=== PATIENT | male | born 1965 | race Caucasian/White ===

== ENCOUNTER 2016-12-08 10:34 | Observation (INO) | payer MEDICAID, OTHER ==
[~2016-12-08] VITALS: Ht 180.3 cm; Wt 100.2 kg
[~2016-12-08 10:34] MED LIST: HYDR-762 PO
[2016-12-08] MEDS ORDERED: ONDANSETRON 4 MG INJ IV STA (10:55)
[2016-12-08] MEDS ORDERED: NITROGLYCERIN 2% 1 GM OINT PKT TD STA (10:55)
[2016-12-08] MEDS ORDERED: morphine 4 MG/ML VIAL IV STA (10:55)
[2016-12-08] MEDS ORDERED: ASPIRIN 325 MG TAB PO STA (10:55)
[2016-12-08] MEDS: NITROGLYCERIN (SL) 0.4 MG TAB SL PRN ×3 (11:00→11:13)
[2016-12-08 11:11] LABS: ADD SCAN DIFF NO
[2016-12-08] MEDS ORDERED: INSU200I SQ (11:13)
[2016-12-08] MEDS ORDERED: LANT3I SC (11:14)
[2016-12-08] MEDS ORDERED: ATOR40TA68 PO (11:14)
[2016-12-08] MEDS ORDERED: METF1000 PO (11:14)
[2016-12-08] MEDS ORDERED: ALPR1TAB2 PO (11:16)
[2016-12-08] MEDS ORDERED: ATEN-122 PO (11:16)
[2016-12-08] MEDS ORDERED: LOSA100T47 PO (11:19)
[2016-12-08] MEDS ORDERED: LISI40TA9 PO (11:20)
[2016-12-08 11:21] LABS: BASOPHILS % 0.3 % (0.0-2.0); EOSINOPHILS # 0.2 10^3/ul (0.0-0.5); HEMATOCRIT 47.3 % (42.0-52.0); HEMOGLOBIN 15.9 g/dl (14.0-18.0); LYMPHOCYTES # 1.6 10^3/ul (0.8-2.9); LYMPHOCYTES % 23.9 % (15.0-51.0); MEAN CORPUSCULAR HEMOGLOBIN 29.3 pg (29.0-33.0); MEAN CORPUSCULAR HGB CONC 33.6 g/dl (32.0-37.0); MEAN CORPUSCULAR VOLUME 87.1 fl (82.0-101.0); MEAN PLATELET VOLUME 11.5 fl (7.4-10.4); MONOCYTE # 0.6 10^3/ul (0.3-0.9); MONOCYTES % 8.3 % (0.0-11.0); NEUTROPHIL # 4.4 10^3/ul (1.6-7.5); NEUTROPHILS % 64.2 % (39.0-77.0); PLATELET COUNT 234 10^3/UL (140-415); RED BLOOD COUNT 5.43 10^6/ul (4.70-6.10); RED CELL DISTRIBUTION WIDTH 12.2 % (11.5-14.5); WHITE BLOOD COUNT 6.8 10^3/ul (4.8-10.8)
[2016-12-08] MEDS ORDERED: HYDR-902 PO (11:21)
[2016-12-08 11:52] LABS: ALANINE AMINOTRANSFERASE 36 IU/L (13-69); ALBUMIN 4.6 g/dl (3.3-4.9); ALBUMIN/GLOBULIN RATIO 1.27; ALKALINE PHOSPHATASE 83 IU/L (42-121); ANION GAP 24 (8-16); ASPARTATE AMINO TRANSFERASE 36 IU/L (15-46); BILIRUBIN,INDIRECT 0.4 mg/dl (0-1.1); BILIRUBIN,TOTAL 0.4 mg/dl (0.2-1.3); BLOOD UREA NITROGEN 14 mg/dl (7-20); CALCIUM 9.8 mg/dl (8.4-10.2); CARBON DIOXIDE 22 mmol/L (21-31); CHLORIDE 97 mmol/L (97-110); CREATININE 0.69 mg/dl (0.61-1.24); GLUCOSE 372 mg/dl (70-220); POTASSIUM 4.2 mmol/L (3.5-5.1); SODIUM 139 mmol/L (135-144); TOTAL PROTEIN 8.2 g/dl (6.1-8.1)
[2016-12-08 11:56] LABS: INR 0.96; PARTIAL THROMBOPLASTIN TIME 27.9 Sec (25.0-35.0); PROTIME 12.8 Sec (12.2-14.2)
[2016-12-08 12:09] LABS: TROPONIN-I < 0.012 ng/ml (0.00-0.12)
--- NOTE | 2016-12-08 12:13 | RADRPT ---
PROCEDURE: Chest x-ray CLINICAL INDICATION: Chest pain TECHNIQUE: Chest single view COMPARISON: None FINDINGS: The heart is normal in size. The pulmonary vessels are normal in caliber. The lungs are clear. Th e costophrenic angles are sharp. The visualized bony thorax is unremarkable. Suspect lower cervical spine hardware which is partially visualized IMPRESSION: No acute cardiopulmonary disease. RPTAT: HH .Jose Ramon Lorenzana MD, MD Date Time Electronically viewed and signed by .Jose Ramon Lorenzana MD, on 12/08/2016 12:13 .W/
[2016-12-08 12:30] VITALS: TEMP 98
--- NOTE | 2016-12-08 13:42 | ERA ---
ER Documentation Chief Complaint Date/Time DATE: 12/08/16 TIME: 13:39 Chief Complaint CHEST PAIN WHILE WORKING NO DIAPHORESIS. MILD SOB. LEFT ARM RADIATING PAIN HPI This a 51-year-old male who is here for chest pain. The patient states for the past week he has been having some substernal chest pressure that radiates to the left arm with some shortness of breath. No diaphoresis palpitations syncope pain. The patient says he has hypertension, diabetes, high cholesterol. Patient does not smoke. 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 He is complaining of some mild low back pain as well. No loss of consciousness or head injury denies any neck pain or extremity pain known focal neurological complaints. His current chest pain is mild he describes as a pressure ROS All systems reviewed and are negative except as per history of present illness. Medications Home Meds Reported Medications Hydrocodone/Acetaminophen ([place] 10-325 Tablet) 1 Each Tablet, 1 EACH PO TID, TAB 12/08/16 Lisinopril* (Lisinopril*) 40 Mg Tablet, 40 MG PO DAILY, #30 TAB 12/08/16 Losartan Potassium* (Cozaar*) 100 Mg Tablet, 100 MG PO DAILY, #30 TAB 12/08/16 Atenolol* (Tenormin*) 50 Mg Tablet, 50 MG PO DAILY, #30 TAB 12/08/16 Alprazolam* (Xanax*) 1 Mg Tab, 1 MG PO QHS Y for SLEEP, TAB 12/08/16 Atorvastatin* (Atorvastatin*) 40 Mg Tablet, 40 MG PO QHS, #30 TAB 12/08/16 Metformin Hcl* (Metformin Hcl*) 1,000 Mg Tablet, 1000 MG PO WITH BREAKFAST DINNE , #30 TAB 12/08/16 Insulin Glargine* (Lantus*) 100 Unit/Ml Soln, 15 UNIT SC QHS, #1 VIAL 12/08/16 Insulin Lispro (Humalog Kwikpen) 200 Unit/1 Ml Insuln.pen, 15 UNIT SQ AC MEALS, EA 12/08/16 Discontinued Scripts Hydrocodone Bit-Acetaminophen* ([place]*) 10-325 Mg Tablet, 1 TAB PO Q6 Y for PAIN , #18 TAB Prov:MADDISON ENCISO MD 12/17/15 Allergies Allergies: Coded Allergies: No Known Allergy (Unverified , 12/08/16) PMhx/Soc History of Surgery: Yes (NECK AND BACK SURGERY) Hx Psychiatric Problems: No Hx Miscellaneous Medical Probl: No Hx Alcohol Use: Yes Hx Substance Use: No Hx Tobacco Use: No Smoking Status: Former smoker FmHx Family History: No coronary disease Physical Exam Vitals Vital Signs Date Time Temp Pulse Resp B/P Pulse Ox O2 Delivery O2 Flow Rate FiO2 12/08/16 11:15 104 20 161/90 98 Room Air 12/08/16 11:05 97 21 161/97 98 Room Air 12/08/16 11:00 101 21 187/91 98 Room Air 12/08/16 10:36 98.6 101 21 195/105 98 Physical Exam Const: Well-developed, well-nourished Head: Atraumatic, normocephalic Eyes: Normal Conjunctiva, PERRLA, EOMI, normal sclera, no nystagmus ENT: Normal External Ears, Nose and Mouth, moist mucus membranes. Neck: Full range of motion. No meningismus, no lymphadenopathy. Resp: Clear to auscultation bilaterally, no wheezing, rhonchi, rales Cardio: Regular rate and rhythm, no murmurs, S1 S2 present Abd: Soft, non tender x 4, non distended. Normal bowel sounds, no guarding or rebound, no pulsitile abdominal masses or bruits Skin: No petechiae or rashes, no ecchymosis , no maculopapular rash Back: No midline or flank tenderness, bilateral lower paraspinal lumbar tenderness negative straight leg test by the Ext: No cyanosis, or edema, FROM x 4, normal inspection, neurovascularly intact x 4 Neur: Awake and alert, STR 5/5 x 4, sensation intact x 4, no focal findings, cerebellum intact Psych: Normal Mood and Affect Result Diagram: 12/08/16 1055 12/08/16 1055 Results 24 hrs Laboratory Tests Test 12/08/16 10:55 White Blood Count 6.810^3/ul Red Blood Count 5.4310^6/ul Hemoglobin 15.9g/dl Hematocrit 47.3% Mean Corpuscular Volume 87.1fl Mean Corpuscular Hemoglobin 29.3pg Mean Corpuscular Hemoglobin Concent 33.6g/dl Red Cell Distribution Width 12.2% Platelet Count 04722^3/UL Mean Platelet Volume 11.5fl Neutrophils % 64.2% Lymphocytes % 23.9% Monocytes % 8.3% Eosinophils % 3.0% Basophils % 0.3% Nucleated Red Blood Cells % 0.0/100WBC Neutrophils # 4.410^3/ul Lymphocytes # 1.610^3/ul Monocytes # 0.610^3/ul Eosinophils # 0.210^3/ul Basophils # 0.010^3/ul Nucleated Red Blood Cells # 0.010^3/ul Prothrombin Time 12.8Sec Prothrombin Time Ratio 1.0 INR International Normalized Ratio 0.96 Activated Partial Thromboplast Time 27.9Sec Sodium Level 139mmol/L Potassium Level 4.2mmol/L Chloride Level 97mmol/L Carbon Dioxide Level 22mmol/L Anion Gap 24 Blood Urea Nitrogen 14mg/dl Creatinine 0.69mg/dl Glucose Level 372mg/dl Calcium Level 9.8mg/dl Total Bilirubin 0.4mg/dl Direct Bilirubin 0.00mg/dl Indirect Bilirubin 0.4mg/dl Aspartate Amino Transf (AST/SGOT) 36IU/L Alanine Aminotransferase (ALT/SGPT) 36IU/L Alkaline Phosphatase 83IU/L Troponin I < 0.012ng/ml Total Protein 8.2g/dl Albumin 4.6g/dl Globulin 3.60g/dl Albumin/Globulin Ratio 1.27 Current Medications Medications (Trade) Dose Ordered Sig/Travon Route PRN Reason Start Time Stop Time Status Last Admin Dose Admin Aspirin (Aspirin) 325 mg ONCE STAT PO 12/08/16 10:55 12/08/16 10:57 DC 12/08/16 11:01 Nitroglycerin (Nitroglycerin 2% Oint) 1 inch ONCE STAT TD 12/08/16 10:55 12/08/16 10:57 DC 12/08/16 11:02 Nitroglycerin (Nitroglycerin (Sl Tab) 0.4 Mg) 1 tab Q5M UP TO 3 DOSES PRN SL CHEST PAIN 12/08/16 11:00 12/08/16 11:13 Morphine Sulfate (morphine) 4 mg ONCE STAT IV 12/08/16 10:55 12/08/16 10:57 DC 12/08/16 11:01 Ondansetron HCl (Zofran Inj) 4 mg ONCE STAT IV 12/08/16 10:55 12/08/16 10:57 DC 12/08/16 11:01 Procedures/MDM EKG: Rate/Rhythm: Sinus tachycardia at 105 heart rate QRS, ST, QT: NORMAL NV, QRS, QT] Impression: Sinus tachycardia PROCEDURE: Chest x-ray CLINICAL INDICATION: Chest pain TECHNIQUE: Chest single view COMPARISON: None FINDINGS: The heart is normal in size. The pulmonary vessels are normal in caliber. The lungs are clear. The costophrenic angles are sharp. The visualized bony thorax is unremarkable. Suspect lower cervical spine hardware which is partially visualized IMPRESSION: No acute cardiopulmonary disease. RPTAT: HH .Jose Ramon Loernzana MD, MD Date Time Electronically viewed and signed by .Jose Ramon Lorenzana MD, MD on 12/08/2016 12:13 .W/ CC: ADRY SUAREZ DO Patient is unstable for transfer due to unstable chest pain pattern Patient's symptoms are concerning for cardiac cause will require inpatient workup and continuous monitoring. Further w/u for ischemia, arrhythmia, PE or dissection will be deferred to the inpatient team. Accepting Care Team: Current data and ongoing care discussed. Time: Time of admission Primary Provider: [facility] Consulting: [[employer]] Outstanding Data: none Departure Diagnosis: Primary Impression: Chest pain Qualified Code: R07.9 - Chest pain, unspecified type Condition: Stable ADRY SUAREZ DO Dec 08, 2016 13:42
[2016-12-08] MEDS ORDERED: ACETAMINOPHEN 325 MG TAB PO PRN ×2 (14:00→15:00)
[2016-12-08] MEDS ORDERED: ONDANSETRON 4 MG INJ IV PRN ×2 (14:00→15:00)
--- NOTE | 2016-12-08 14:23 | RADRPT ---
PROCEDURE: XR Lumbar Spine. CLINICAL INDICATION: Trauma, back pain TECHNIQUE: AP, cone-down lateral, and lateral views of the lumbar spine were obtained. COMPARISON: None. FINDINGS: No fracture is identified. The vertebral bodies are maintained in height. There is preservation of the lordosis of the lumbar spine. There is mild retrolisthesis of L4 on L5 measuring 3-4 mm. Ther e is mild levoconvex lumbar scoliosis. There are multilevel anterior osteophytes, more pronounced a t L3-4. There is disk space narrowing, moderate at L3-4, moderate - severe at L4-5 and L5-S1. Poste rior osteophytes are seen at multiple levels. Facet arthropathy is seen at the L3-4 through L5-S1 l evels. IMPRESSION: No fracture identified. Lumbar spondylosis/degenerative enthesopathy, more pronounced at L4-5 and L5-S1, with mild retrolist hesis at L4-5. Mild levoconvex lumbar scoliosis. RPTAT: VV .Bhaskar Leonard MD, MD Date Time Electronically viewed and signed by .Bhaskar Leonard MD, on 12/08/2016 14:22 .O/
[2016-12-08] MEDS ORDERED: DOCUSATE SODIUM 100 MG CAP PO PRN (15:00)
[2016-12-08] MEDS ORDERED: ALPRAZOLAM 1 MG TAB PO PRN (15:00)
[2016-12-08] MEDS ORDERED: MAGNESIUM HYDROXIDE 30ML CUP PO PRN (15:00)
[2016-12-08] MEDS ORDERED: NITROGLYCERIN (SL) 0.4 MG TAB SL PRN (15:00)
[2016-12-08] MEDS ORDERED: NACL 0.9% 3 ML SYG IV SCH (15:00)
[2016-12-08] MEDS ORDERED: ACETAMINOPHEN 650 MG SUPP PR PRN (15:00)
[2016-12-08] MEDS ORDERED: GLUCOSE GEL 15 GRAM TUBE BUCCAL PRN (15:30)
[2016-12-08] MEDS ORDERED: GLUCOSE GEL 15 GRAM TUBE PO PRN ×2 (15:30)
[2016-12-08] MEDS ORDERED: GLUCAGON 1 MG INJ IM PRN (15:30)
[2016-12-08] MEDS ORDERED: DEXTROSE 50% 50 ML SYRINGE IV PRN ×2 (15:30)
--- NOTE | 2016-12-08 15:37 | HP ---
Date/Time of Note Date/Time of Note DATE: 12/08/16 TIME: 15:30 Assessment/Plan VTE Prophylaxis VTE Prophylaxis Intervention: LMWH Lines/Catheters IV Catheter Type (from Nrsg): Saline Lock Assessment/Plan Assessment/Plan This is a 51-year-old male who came to the emergency room for evaluation of chest pain. 1. Chest pain, rule out ACS versus musculoskeletal versus anxiety. -Admit to telemetry for observation. -Cardiology consult based on comorbidities -Start aspirin, nitroglycerin sublingual PRN and morphine. -Serial troponin, 2D echocardiogram, serial EKGs. -Obtain TSH, vitamin D level 2. Type 2 diabetes. -Obtain A1c -Start Accu-Cheks and insulin sliding scale -Resume Lantus and pre-meal insulin -Hold metformin -Carb controlled diet 3. Essential hypertension -Continue home medication except losartan as patient is also taking lisinopril. -Follow-up with cardiology recommendation 4. Anxiety -Resume home medications 5. Dyslipidemia -Resume home statin -Obtain lipid panel DVT prophylaxis: Lovenox PUD prophylaxis: Pepcid. Plan: Patient will be admitted to telemetry for observation. Patient will have cardiology consult. He will be placed on a carbohydrate controlled, cardiac diet. We will follow-up with a.m. lab studies and echo findings. The rest of the management depend on clinical course, further studies and input from customer sales consultant. Approximately 60 minutes was spent on this history and physical. Case discussed with Dr. Dickson. 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 Patient also reported that he fell into a hole while this happened. After the incident, patient has been having on and off chest pain regardless of activities. He also had lower back pain after the incident. Patient also reported that he has been under tremendous stress with his 16-year-old daughter who recently caught by director of employee development for shoplifting. He also reported that his blood pressure has been high recently and his PCP added Losartan to his medication while patient also takes Lisinopril. Patient denied any fever, nausea, vomiting , shortness of breath, chills, diarrhea, constipation, headache, loss of consciousness, abdominal pain, upper or lower GI bleed episodes, numbness or other constitutional symptoms. In the emergency room, patient was given pain medication and aspirin with improvement in his symptoms. Initial labs within acceptable range. Initial troponin also negative. Chest x-ray negative for any acute cardiopulmonary process. A lumbar CT also was negative for any acute process. EKG with sinus tachycardia. There was no ST or T-wave changes. A clinical decision was made to admit patient for further evaluation. ROS A 12 point review of system was assessed and is negative other than what is mentioned in the HPI. PMH/Family/Social Past Medical History See HPI Past Surgical History See HPI Social History Patient reports occasional alcohol use. Quit smoking. Smoking Status: Former smoker Exam/Review of Systems Vital Signs Vitals Vital Signs Date Time Temp Pulse Resp B/P Pulse Ox O2 Delivery O2 Flow Rate FiO2 12/08/16 14:42 90 19 159/63 98 Room Air 12/08/16 10:36 98.6 Exam Exam General: Well developed,adequately built, not in any acute distress . HEENT: Normocephalic, Atraumatic, No laceration or hematoma; Eyes: PEERL, Conjunctiva clear, Anicteric sclera Neck: Supple without any lymphadenopathy, nontender, no JVD, no carotid bruits, trachea midline, no thyromegaly Cardiac: S1, S2 auscultated, regular rhythm and rate, no mumurs or gallop Pulmonary: Normal respiratory effort. Chest clear to auscultation bilaterally, no adventitious breath sounds GI: Abdomen normal to inspection. Soft, non tender, non- distended, no masses, no rebound tenderness or guarding. Bowel sounds active on all four quadrants Genitourinary: Deferred Extremities: No cyanosis, clubbing, or edema. Pulses [2+] bilaterally. Full ROM on all four extremities. No focal weakness appreciated. Neurologic: Alert to person, place, time, and situation. Affect appropriate, intact sensation. Skin: Clean,dry, and intact. No ecchymosis, no rashes, or lesions Labs Result Diagram: 12/08/16 1055 12/08/16 1055 LESTER CRANDALL NP Dec 08, 2016 15:37
[2016-12-08 15:47] LABS: ADD UMIC NO; UR ASCORBIC ACID NEGATIVE (NEGATIVE); UR BILIRUBIN (Dip) NEGATIVE (NEGATIVE); UR BLOOD (Dip) NEGATIVE (NEGATIVE); UR CLARITY CLEAR (CLEAR); UR COLOR STRAW (YELLOW); UR GLUCOSE (Dip) 3+ mg/dL (NEGATIVE); UR KETONES (Dip) NEGATIVE (NEGATIVE); UR LEUKOCYTE ESTERASE (Dip) NEGATIVE Leu/ul (NEGATIVE); UR NITRITE (Dip) NEGATIVE (NEGATIVE); UR SPECIFIC GRAVITY (Dip) 1.026 (1.003-1.030); UR TOTAL PROTEIN (Dip) NEGATIVE (NEGATIVE); UR UROBILINOGEN (Dip) NEGATIVE (NEGATIVE)
[2016-12-08 15:50] LABS: CREATINE KINASE 45 IU/L (23-200)
[2016-12-08] MEDS: morphine 2 MG INJ IV PRN ×2 (16:20→22:08)
[2016-12-08 16:21] LABS: CK-MB 0.75 ng/ml (0.0-2.4); TROPONIN-I < 0.012 ng/ml (0.00-0.12)
[2016-12-08] MEDS ORDERED: INSULIN ASPART [NOVOLOG] 3 ML PEN SC SCH (17:00)
[2016-12-08 17:31] VITALS: Ht 180.3 cm; Wt 100.2 kg
--- NOTE | 2016-12-08 17:31 | RADRPT ---
Echocardiogram Report Patient Name: AMAN HERCULES Gender: Male Date: 1965 Study Date: 08-Dec-2016 Geographic Information Scientist: Frankie Whyte RDCS Location: Er 6 Ref. Physician: LESTER CRANDALL Quality: Good Procedures: Transthoracic echocardiogram with complete 2D, M-Mode, and doppler examination. Indications: Chest Pain. 2D/M Mode Doppler Measurement Value Normal Ranges Measurement Value Normal Ranges IVSd MM 2.1 cm LVOT Mean Sergio 0.6 m/sec LVIDd 2D 4.2 3.5 - 5.6 cm LVOT Mean PG 1.8 mmHg LVIDs 2D 1.6 2.1 - 4.1 cm LVOT Peak Sergio 0.8 m/sec LVPWd 2D 1.4 0.6 - 1.1 cm LVOT Peak PG 2.9 mmHg IVSd 2D 1.4 0.6 - 1.1 cm LVOT VTI 16.5 cm EDV 2D 79.4 cm3 MV E Peak Sergio 0.6 m/sec ESV 2D 4.0 cm3 MV A Peak Sergio 0.8 m/sec LA Dimen 2D 3.9 2.3 - 4.0 cm MV E/A 0.8 LVOT Diam 2.4 cm MV Decel Time 253 msec MV Decel Comanche 2 MV E/A 0.8 TR Peak Sergio 2.3 m/sec TR Peak PG 21.3 mmHg RVSP 31.3 mmHg Findings Left Ventricle: Normal left ventricular systolic function. Moderate concentric left ventricular hypertrophy. Ejection fraction is visually estimated at 55 %. Abnormal Diastolic Function. Right Ventricle: Normal right ventricular size. Normal right ventricular systolic function. Left Atrium: The left atrium is normal in size. Right Atrium: The right atrium is normal in size. Mitral Valve: Mitral valve leaflets appear mildly thickened. Mild mitral annular calcification. Trace mitral regurgitation. Aortic Valve: No aortic regurgitation. Tricuspid Valve: Estimated peak PA systolic pressure 31 mmHg. There is trace tricuspid regurgitation. Pulmonic Valve: Pulmonic valve not well visualized. Pericardium: Normal pericardium with no significant pericardial effusion. Aorta: Normal aortic root. IVC: Normal size and normal respiratory collapse consistent with normal right atrial pressure. Pulmonary Artery: Not well visualized. Conclusions 1.Normal left ventricular systolic function. Moderate concentric left ventricular hypertrophy. Ejection fraction is visually estimated at 55 %. Abnormal Diastolic Function. 2.No aortic regurgitation. 3.Estimated peak PA systolic pressure 31 mmHg. There is trace tricuspid regurgitation. 4.Mitral valve leaflets appear mildly thickened. Mild mitral annular calcification. Trace mitral regurgitation. Electronically Signed By: Darryl Bucio 08-Dec-2016 17:30:52 -0700 Patient Name: AMAN HERCULES Study Date: 08-Dec-2016 [id number]
[2016-12-08 17:55] VITALS: BP 148/79; PULSE 75; RESP 18
[2016-12-08] MEDS: INSULIN ASPART [NOVOLOG] 3 ML PEN SC SCH (18:21)
--- NOTE | 2016-12-08 19:22 | CONS ---
Date/Time of Note Date/Time of Note DATE: 12/08/16 TIME: 19:15 Assessment/Plan Assessment/Plan Additional Assessment/Plan 1. CHEST PAIN R/O ACS 2. HTN 3/. DM 4. Dyslipidemia \5. CHRONIC BACK PAIN ASA 81 INC ATENOLOL 50 BID CONT LISINOPRIL AND STOP LOSARTAN ADD NORVASC IF BP IS STILL ELEVATED AFTER ABOVE CHANGES. LEXISCAN STRESS TEST WAS RECOMMENDED TO PT BUT HE DECLINED, stating he has had multiple ones done previously and does not want to have it done. DM control as per IM Thank you for his referral. Consultation Date/Type/Reason Admit Date/Time Date of Consultation: Dec 08, 2016 Type of Consultation: CARDIOLOGY Reason for Consultation CHEST PAIN Referring Provider: LESTER CRANDALL NP Thank you for this referral. This is a 51-year-old gentleman with history of diabetes hypertension dyslipidemia who came to emergency room complaining. Patient said he has had chronic chest pain left-sided he does not exercise much due to his back pain. 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 He has had chest pain for about 10 years now. Patient came in this morning because when he was climbing a ladder he started having left-sided chest pain pressure. Then he becomes sharp stabbing pain. He was severe. The pain has resolved now. Patient says he has had 6 stressors over the past 10 years all of which have been normal. At this point does not want to have another stress test done. Currently has been ruled out for myocardial infarction so far. Patient states that he gets the chest pain that his blood pressure is elevated. In the emergency room his blood pressure was markedly elevated. Allergies no known drug allergies Medication was reviewed at the medical reconciliation include atenolol lisinopril. Is also been losartan as well and is on insulin. Family history no early coronary artery disease his father had a heart transplant due to valvular heart disease apparently due to rheumatic heart disease. History patient has an active tobacco alcohol or drug abuse. Review of systems he denies all except for above-mentioned plus back pain and neck pain. Physical exam: General: no acute distress HEENT: NC/AT. pupils are equal. round. NECK: NO JVD. no stridor. CV: RRR. systolic murmur; no gallop or rubs. PULM: no wheezing or rhonchi. GI: SOFT, NT, ND, no rebound or guarding Extremity: trace B/L LE edema. no clubbing. neuro: awake and alert, OX3. Psych: calm and pleasant rectal: deferred : normal male Derm multiple tattoos ECG NSR normal ECHO normal EF Social History Smoking Status: Never smoker Exam/Review of Systems Vital Signs Vitals Vital Signs Date Time Temp Pulse Resp B/P Pulse Ox O2 Delivery O2 Flow Rate FiO2 12/08/16 17:55 98.3 75 18 148/79 99 Room Air Results Result Diagram: 12/08/16 1055 12/08/16 1055 Results 24 hrs Laboratory Tests Test 12/08/16 10:55 12/08/16 15:00 12/08/16 15:28 12/08/16 18:19 White Blood Count 6.8 Red Blood Count 5.43 Hemoglobin 15.9 Hematocrit 47.3 Mean Corpuscular Volume 87.1 Mean Corpuscular Hemoglobin 29.3 Mean Corpuscular Hemoglobin Concent 33.6 Red Cell Distribution Width 12.2 Platelet Count 234 Mean Platelet Volume 11.5 H Neutrophils % 64.2 Lymphocytes % 23.9 Monocytes % 8.3 Eosinophils % 3.0 Basophils % 0.3 Nucleated Red Blood Cells % 0.0 Neutrophils # 4.4 Lymphocytes # 1.6 Monocytes # 0.6 Eosinophils # 0.2 Basophils # 0.0 Nucleated Red Blood Cells # 0.0 Prothrombin Time 12.8 Prothrombin Time Ratio 1.0 INR International Normalized Ratio 0.96 Activated Partial Thromboplast Time 27.9 Sodium Level 139 Potassium Level 4.2 Chloride Level 97 Carbon Dioxide Level 22 Anion Gap 24 H Blood Urea Nitrogen 14 Creatinine 0.69 Glucose Level 372 H Calcium Level 9.8 Total Bilirubin 0.4 Direct Bilirubin 0.00 Indirect Bilirubin 0.4 Aspartate Amino Transf (AST/SGOT) 36 Alanine Aminotransferase (ALT/SGPT) 36 Alkaline Phosphatase 83 Troponin I < 0.012 < 0.012 Total Protein 8.2 H Albumin 4.6 Globulin 3.60 H Albumin/Globulin Ratio 1.27 Creatine Kinase 45 Creatine Kinase Index 1.7 Creatinine Kinase MB (Mass) 0.75 Urine Color STRAW Urine Clarity CLEAR Urine pH 5.0 Urine Specific [place] 1.026 Urine Ketones NEGATIVE Urine Nitrite NEGATIVE Urine Bilirubin NEGATIVE Urine Urobilinogen NEGATIVE Urine Leukocyte Esterase NEGATIVE Urine Hemoglobin NEGATIVE Urine Glucose 3+ H Urine Total Protein NEGATIVE Bedside Glucose 201 Medications Medications Current Medications Alprazolam (Xanax) 1 mg QHS PRN PO SLEEP; Start 12/08/16 at 15:00 Atenolol (Tenormin) 50 mg DAILY PO ; Start 12/09/16 at 09:00 Atorvastatin Calcium (Lipitor) 40 mg QHS PO ; Start 12/08/16 at 21:00 Insulin Glargine (Lantus) 15 unit QHS SC ; Start 12/08/16 at 21:00 Lisinopril (Zestril) 40 mg DAILY PO ; Start 12/09/16 at 09:00 Insulin Aspart (Novolog Insulin Pen) NOVOLOG *MILD* ALGORI... Q4 SC Last administered on 12/08/16 18:22; Admin Dose 2 UNIT; Start 12/08/16 at 17:00 Ondansetron HCl (Zofran Inj) 4 mg Q6H PRN IV NAUSEA AND/OR VOMITING Last administered on 12/08/16 16:20; Admin Dose 4 MG; Start 12/08/16 at 15:00 Acetaminophen (Tylenol Tab) 650 mg Q6H PRN PO PAIN LEVEL 1-3 OR FEVER; Start at 15:00 Acetaminophen (Tylenol Supp) 650 mg Q6H PRN AR PAIN LEVEL 1-3 OR FEVER; Start 12/08/16 at 15:00 Acetaminophen/ Hydrocodone Bitart ([place] (5/325)) 1 tab Q6H PRN PO MODERATE PAIN LEVEL 4-6; Start 12/08/16 at 15:00 Morphine Sulfate (morphine) 2 mg Q4H PRN IV SEVERE PAIN LEVEL 7-10 Last administered on 12/08/16 16:20; Admin Dose 2 MG; Start 12/08/16 at 15:00 Docusate Sodium (Colace) 100 mg Q12H PRN PO CONSTIPATION; Start 12/08/16 at 15: 00 Magnesium Hydroxide (Milk Of Mag) 30 ml DAILY PRN PO CONSTIPATION; Start at 15:00 Famotidine (Pepcid) 20 mg Q12 PO ; Start 12/08/16 at 21:00 Enoxaparin Sodium (Lovenox) 40 mg DAILY SC ; Start 12/09/16 at 09:00 Nitroglycerin (Nitroglycerin (Sl Tab) 0.4 Mg) 1 tab Q5M PRN SL ANGINA; Start at 15:00 Aspirin (Aspirin) 81 mg DAILY PO ; Start 12/09/16 at 09:00 Miscellaneous Information 1 ea NOTE XX ; Start 12/08/16 at 15:30 Glucose (Glutose) 15 gm Q15M PRN PO DECREASED GLUCOSE; Start 12/08/16 at 15:30 Glucose (Glutose) 22.5 gm Q15M PRN PO DECREASED GLUCOSE; Start 12/08/16 at 15: 30 Dextrose (D50w Syringe) 25 ml Q15M PRN IV DECREASED GLUCOSE; Start 12/08/16 at 15:30 Dextrose (D50w Syringe) 50 ml Q15M PRN IV DECREASED GLUCOSE; Start 12/08/16 at 15:30 Glucagon (Glucagen) 1 mg Q15M PRN IM DECREASED GLUCOSE; Start 12/08/16 at 15:30 Glucose (Glutose) 15 gm Q15M PRN BUCCAL DECREASED GLUCOSE; Start 12/08/16 at 15 :30 FOREIGN MELGAR MD Dec 08, 2016 19:22
[2016-12-08 20:06] VITALS: PULSE 81
[2016-12-08 20:12] VITALS: BP 141/83; PULSE 80; RESP 20
[2016-12-08] MEDS ORDERED: ATORVASTATIN 40 MG TAB PO SCH (21:00)
[2016-12-08] MEDS ORDERED: INSULIN GLARGINE [LANtus] 3 ML PEN SC SCH (21:00)
[2016-12-08 21:25] LABS: CREATINE KINASE 38 IU/L (23-200)
[2016-12-08 21:43] LABS: CK-MB 0.72 ng/ml (0.0-2.4); TROPONIN-I < 0.012 ng/ml (0.00-0.12)
[2016-12-08 21:44] VITALS: PULSE 71
[2016-12-08 22:00] VITALS: BP 140/83; RESP 20
[2016-12-08] MEDS: ATENOLOL 50 MG TAB PO SCH (22:07)
[2016-12-08] MEDS: FAMOTIDINE 20 MG TAB PO SCH (22:07)
[2016-12-08] MEDS ORDERED: ALPRAZOLAM 0.25 MG TAB PO PRN (22:59)
[2016-12-08] MEDS: HYDROCODONE/APAP (5/325) TAB PO PRN (23:31)
[2016-12-09] VITALS: BP 126/75; PULSE 60; RESP 20
[2016-12-09] MEDS ORDERED: ACCU-CHEK XX SCH (02:00)
[2016-12-09] MEDS ORDERED: ACCUCHECK AT 2AM (Patients on SS coverage) XX SCH ×2 (02:00)
[2016-12-09 04:00] VITALS: BP 114/62; PULSE 57; RESP 15
[2016-12-09] MEDS: morphine 2 MG INJ IV PRN (05:20)
[2016-12-09 05:42] LABS: ADD SCAN DIFF NO
[2016-12-09 05:46] LABS: BASOPHILS % 0.1 % (0.0-2.0); EOSINOPHILS # 0.4 10^3/ul (0.0-0.5); EOSINOPHILS % 4.9 % (0.0-7.0); HEMATOCRIT 45.5 % (42.0-52.0); HEMOGLOBIN 14.8 g/dl (14.0-18.0); LYMPHOCYTES # 3.3 10^3/ul (0.8-2.9); MEAN CORPUSCULAR HGB CONC 32.5 g/dl (32.0-37.0); MEAN PLATELET VOLUME 11.4 fl (7.4-10.4); MONOCYTE # 0.8 10^3/ul (0.3-0.9); MONOCYTES % 9.4 % (0.0-11.0); NEUTROPHIL # 3.7 10^3/ul (1.6-7.5); NEUTROPHILS % 45.2 % (39.0-77.0); PLATELET COUNT 241 10^3/UL (140-415); RED BLOOD COUNT 5.11 10^6/ul (4.70-6.10); RED CELL DISTRIBUTION WIDTH 12.3 % (11.5-14.5); WHITE BLOOD COUNT 8.2 10^3/ul (4.8-10.8)
[2016-12-09 06:05] LABS: ALBUMIN/GLOBULIN RATIO 1.33; BILIRUBIN,INDIRECT 0.3 mg/dl (0-1.1); BILIRUBIN,TOTAL 0.3 mg/dl (0.2-1.3); CALCIUM 9.5 mg/dl (8.4-10.2); CHOL/HDL RATIO 6.9 RATIO; CREATININE 0.83 mg/dl (0.61-1.24); MAGNESIUM 1.8 mg/dl (1.7-2.5); PHOSPHORUS 4.5 mg/dl (2.5-4.9); POTASSIUM 4.4 mmol/L (3.5-5.1)
[2016-12-09 06:32] LABS: THYROID STIMULATING HORMONE 1.94 MIU/L (0.465-4.680)
[2016-12-09] MEDS ORDERED: Insulin NOVOLOG SS MILD Algorithm (SS with meals and bedtime) SC SCH (07:30)
[2016-12-09] MEDS ORDERED: INSULIN ASPART [NOVOLOG] 3 ML PEN SC SCH ×2 (07:30→08:00)
[2016-12-09 07:43] VITALS: BP 135/78; RESP 18
[2016-12-09 08:14] VITALS: PULSE 81
[2016-12-09] MEDS: INSULIN ASPART [NOVOLOG] 3 ML PEN SC SCH ×2 (08:22→12:11)
[2016-12-09] MEDS: Insulin NOVOLOG SS MILD Algorithm (SS with meals and bedtime) SC SCH ×2 (08:23→12:12)
[2016-12-09] MEDS: FAMOTIDINE 20 MG TAB PO SCH (08:53)
[2016-12-09] MEDS: ATENOLOL 50 MG TAB PO SCH (08:53)
[2016-12-09] MEDS ORDERED: LISINOPRIL 20 MG TAB PO SCH (09:00)
[2016-12-09] MEDS ORDERED: ATENOLOL 50 MG TAB PO SCH (09:00)
[2016-12-09] MEDS ORDERED: ENOXAPARIN 40 MG/0.4 ML SYG SC SCH (09:00)
[2016-12-09] MEDS ORDERED: ASPIRIN 81 MG TAB PO SCH (09:00)
[2016-12-09 09:02] LABS: CREATINE KINASE 38 IU/L (23-200)
[2016-12-09 09:20] LABS: CK-MB 0.62 ng/ml (0.0-2.4); TROPONIN-I < 0.012 ng/ml (0.00-0.12)
--- NOTE | 2016-12-09 09:32 | PN ---
Date/Time of Note Date/Time of Note DATE: 12/09/16 TIME: 09:30 Assessment/Plan VTE Prophylaxis VTE Prophylaxis Intervention: ambulation Lines/Catheters IV Catheter Type (from Nrsg): Saline Lock Assessment/Plan Assessment/Plan Assessment/Plan 1. CHEST PAIN R/O ACS: DID NOT want to have repeat stress test 2. HTN 3/. DM 4. Dyslipidemia \5. CHRONIC BACK PAIN ASA 81 cont ATENOLOL 50 BID CONT LISINOPRIL AND off of LOSARTAN ADD NORVASC IF BP IS STILL ELEVATED AFTER ABOVE CHANGES. LEXISCAN STRESS TEST WAS RECOMMENDED TO PT BUT HE DECLINED, stating he has had multiple ones done previously and does not want to have it done. DM control as per IM inc lipitor 80 Subjective 24 Hr Interval Summary Free Text/Dictation d/w staff d/w Dr Baker pt with no chest pain or pressure and wants to go home BP has been stable. OBJECTIVE: General: no acute distress HEENT: NC/AT. pupils are equal. round. NECK: NO JVD. no stridor. CV: RRR. systolic murmur; no gallop or rubs. PULM: no wheezing or rhonchi. GI: SOFT, NT, ND, no rebound or guarding Extremity: trace B/L LE edema. no clubbing. neuro: awake and alert, OX3. Psych: calm and pleasant rectal: deferred : normal male Derm multiple tattoos Exam/Review of Systems Vital Signs Vitals Vital Signs Date Time Temp Pulse Resp B/P Pulse Ox O2 Delivery O2 Flow Rate FiO2 12/09/16 08:14 81 12/09/16 07:43 97.8 18 135/78 98 12/08/16 20:12 Room Air Intake and Output 12/08/16 12/08/16 12/09/16 14:59 22:59 06:59 Intake Total 400 ml Balance 400 ml Results Result Diagram: 12/09/16 0506 12/09/16 0506 Results 24 hrs Laboratory Tests Test 12/08/16 10:55 12/08/16 15:00 12/08/16 15:28 12/08/16 18:19 White Blood Count 6.8 Red Blood Count 5.43 Hemoglobin 15.9 Hematocrit 47.3 Mean Corpuscular Volume 87.1 Mean Corpuscular Hemoglobin 29.3 Mean Corpuscular Hemoglobin Concent 33.6 Red Cell Distribution Width 12.2 Platelet Count 234 Mean Platelet Volume 11.5 H Neutrophils % 64.2 Lymphocytes % 23.9 Monocytes % 8.3 Eosinophils % 3.0 Basophils % 0.3 Nucleated Red Blood Cells % 0.0 Neutrophils # 4.4 Lymphocytes # 1.6 Monocytes # 0.6 Eosinophils # 0.2 Basophils # 0.0 Nucleated Red Blood Cells # 0.0 Prothrombin Time 12.8 Prothrombin Time Ratio 1.0 INR International Normalized Ratio 0.96 Activated Partial Thromboplast Time 27.9 Sodium Level 139 Potassium Level 4.2 Chloride Level 97 Carbon Dioxide Level 22 Anion Gap 24 H Blood Urea Nitrogen 14 Creatinine 0.69 Glucose Level 372 H Calcium Level 9.8 Total Bilirubin 0.4 Direct Bilirubin 0.00 Indirect Bilirubin 0.4 Aspartate Amino Transf (AST/SGOT) 36 Alanine Aminotransferase (ALT/SGPT) 36 Alkaline Phosphatase 83 Troponin I < 0.012 < 0.012 Total Protein 8.2 H Albumin 4.6 Globulin 3.60 H Albumin/Globulin Ratio 1.27 Creatine Kinase 45 Creatine Kinase Index 1.7 Creatinine Kinase MB (Mass) 0.75 Urine Color STRAW Urine Clarity CLEAR Urine pH 5.0 Urine Specific [place] 1.026 Urine Ketones NEGATIVE Urine Nitrite NEGATIVE Urine Bilirubin NEGATIVE Urine Urobilinogen NEGATIVE Urine Leukocyte Esterase NEGATIVE Urine Hemoglobin NEGATIVE Urine Glucose 3+ H Urine Total Protein NEGATIVE Bedside Glucose 201 Test 12/08/16 20:40 12/08/16 22:24 12/09/16 05:06 12/09/16 08:07 Creatine Kinase 38 38 Creatine Kinase Index 1.9 1.6 Creatinine Kinase MB (Mass) 0.72 0.62 Troponin I < 0.012 < 0.012 Bedside Glucose 149 208 White Blood Count 8.2 # Red Blood Count 5.11 Hemoglobin 14.8 Hematocrit 45.5 Mean Corpuscular Volume 89.0 Mean Corpuscular Hemoglobin 29.0 Mean Corpuscular Hemoglobin Concent 32.5 Red Cell Distribution Width 12.3 Platelet Count 241 Mean Platelet Volume 11.4 H Neutrophils % 45.2 Lymphocytes % 40.0 Monocytes % 9.4 Eosinophils % 4.9 Basophils % 0.1 Nucleated Red Blood Cells % 0.0 Neutrophils # 3.7 Lymphocytes # 3.3 H Monocytes # 0.8 Eosinophils # 0.4 Basophils # 0.0 Nucleated Red Blood Cells # 0.0 Sodium Level 143 Potassium Level 4.4 Chloride Level 99 Carbon Dioxide Level 28 Anion Gap 20 H Blood Urea Nitrogen 16 Creatinine 0.83 Glucose Level 240 #H Hemoglobin A1c 12.6 H Calcium Level 9.5 Phosphorus Level 4.5 Magnesium Level 1.8 Total Bilirubin 0.3 Direct Bilirubin 0.00 Indirect Bilirubin 0.3 Aspartate Amino Transf (AST/SGOT) 23 Alanine Aminotransferase (ALT/SGPT) 36 Alkaline Phosphatase 72 B-Type Natriuretic Peptide 14 Total Protein 7.0 # Albumin 4.0 Globulin 3.00 Albumin/Globulin Ratio 1.33 Triglycerides Level 203 H Cholesterol Level 236 H LDL Cholesterol, Calculated 161 HDL Cholesterol 34 Cholesterol/HDL Ratio 6.9 Thyroid Stimulating Hormone (TSH) 1.940 Medications Medications Current Medications Atorvastatin Calcium (Lipitor) 40 mg QHS PO Last administered on 12/08/16 22: 08; Admin Dose 40 MG; Start 12/08/16 at 21:00 Insulin Glargine (Lantus) 15 unit QHS SC Last administered on 12/08/16 22:27; Admin Dose 15 UNIT; Start 12/08/16 at 21:00 Lisinopril (Zestril) 40 mg DAILY PO Last administered on 12/09/16 08:53; Admin Dose 40 MG; Start 12/09/16 at 09:00 Ondansetron HCl (Zofran Inj) 4 mg Q6H PRN IV NAUSEA AND/OR VOMITING Last administered on 12/08/16 16:20; Admin Dose 4 MG; Start 12/08/16 at 15:00 Acetaminophen (Tylenol Tab) 650 mg Q6H PRN PO PAIN LEVEL 1-3 OR FEVER; Start at 15:00 Acetaminophen (Tylenol Supp) 650 mg Q6H PRN NE PAIN LEVEL 1-3 OR FEVER; Start 12/08/16 at 15:00 Acetaminophen/ Hydrocodone Bitart ([place] (5/325)) 1 tab Q6H PRN PO MODERATE PAIN LEVEL 4-6 Last administered on 12/08/16 23:31; Admin Dose 1 TAB; Start at 15:00 Morphine Sulfate (morphine) 2 mg Q4H PRN IV SEVERE PAIN LEVEL 7-10 Last administered on 12/09/16 05:20; Admin Dose 2 MG; Start 12/08/16 at 15:00 Docusate Sodium (Colace) 100 mg Q12H PRN PO CONSTIPATION; Start 12/08/16 at 15: 00 Magnesium Hydroxide (Milk Of Mag) 30 ml DAILY PRN PO CONSTIPATION; Start at 15:00 Famotidine (Pepcid) 20 mg Q12 PO Last administered on 12/09/16 08:53; Admin Dose 20 MG; Start 12/08/16 at 21:00 Enoxaparin Sodium (Lovenox) 40 mg DAILY SC Last administered on 12/09/16 08:54 ; Admin Dose 40 MG; Start 12/09/16 at 09:00 Nitroglycerin (Nitroglycerin (Sl Tab) 0.4 Mg) 1 tab Q5M PRN SL ANGINA; Start at 15:00 Aspirin (Aspirin) 81 mg DAILY PO Last administered on 12/09/16 08:53; Admin Dose 81 MG; Start 12/09/16 at 09:00 Miscellaneous Information 1 ea NOTE XX ; Start 12/08/16 at 15:30 Glucose (Glutose) 15 gm Q15M PRN PO DECREASED GLUCOSE; Start 12/08/16 at 15:30 Glucose (Glutose) 22.5 gm Q15M PRN PO DECREASED GLUCOSE; Start 12/08/16 at 15: 30 Dextrose (D50w Syringe) 25 ml Q15M PRN IV DECREASED GLUCOSE; Start 12/08/16 at 15:30 Glucagon (Glucagen) 1 mg Q15M PRN IM DECREASED GLUCOSE; Start 12/08/16 at 15:30 Glucose (Glutose) 15 gm Q15M PRN BUCCAL DECREASED GLUCOSE; Start 12/08/16 at 15 :30 Atenolol (Tenormin) 50 mg BID PO Last administered on 12/09/16 08:53; Admin Dose 50 MG; Start 12/08/16 at 21:00 Diagnostic Test (Pha) (Accu-Chek) 1 ea 02 XX ; Start 12/09/16 at 02:00 Alprazolam (Xanax) 1 mg QHS PRN PO SLEEP Last administered on 12/08/16 23:31; Admin Dose 1 MG; Start 12/08/16 at 22:59 FOREIGN MELGAR MD Dec 09, 2016 09:32
[2016-12-09 11:36] VITALS: BP 117/58; RESP 18
[2016-12-09] MEDS: HYDROCODONE/APAP (5/325) TAB PO PRN (11:52)
--- NOTE | 2016-12-09 11:58 | PDOCDIS ---
Discharge Instructions CONDITION Patient Condition: Stable HOME CARE INSTRUCTIONS: Special Diet: carb controlled diet, 2gm sodium diet FOLLOW UP/APPOINTMENTS Follow-up Plan 1.Follow up with primary care physician in 1 week If you don't have one please let someone know, we can give you resources that may help you pick one. You may also call your insurance company to assign one to you. Review your medication list with your nurse before leaving and if you need new prescriptions please let your nurse know. I may have made changes to your home medications or given you new prescriptions, please let your primary doctor know as well. Stay compliant with your medications and report any side effects to your PCP or pharmacist. Return to the ER if you have any concerns and cannot reach your doctors or call your insurance company, they usually have a nurse that can help you. LESTER CRANDALL V. NILAY Dec 09, 2016 11:58
[2016-12-09] MEDS ORDERED: ATEN50TA PO (12:00)
[2016-12-09] MEDS ORDERED: ATOR80TA75 PO (12:00)
[2016-12-09] MEDS ORDERED: ASPI81TA3 PO (12:00)
--- NOTE | 2016-12-09 12:09 | DS ---
Date/Time of Note Date/Time of Note DATE: 12/09/16 TIME: 12:05 Discharge Summary Admission/Discharge Info Admit Date/Time Dec 08, 2016 at 13:38 Discharge Date/Time Discharge Diagnosis 1. Chest pain, likely musculoskeletal. ACS ruled out. Symptoms resolved. 2. Type 2 diabetes. 3. Essential hypertension 4. Anxiety 5. Dyslipidemia Patient Condition: Stable Consults , Cardiology Procedures 12/08/2016. X-ray lumbar spine. IMPRESSION: No fracture identified. Lumbar spondylosis/degenerative enthesopathy, more pronounced at L4-5 and L5-S1 , with mild retrolisthesis at L4-5. Mild levoconvex lumbar scoliosis. 12/08/2016. Chest x-ray. No acute cardiopulmonary disease 12/08/2069. 2D echocardiogram Conclusions 1. Normal left ventricular systolic function. Moderate concentric left ventricular hypertrophy. Ejection fraction is visually estimated at 55 %. Abnormal Diastolic Function. 2. No aortic regurgitation. 3. Estimated peak PA systolic pressure 31 mmHg. There is trace tricuspid regurgitation. 4. Mitral valve leaflets appear mildly thickened. Mild mitral annular calcification. Trace mitral regurgitation. 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 Patient also reported that he fell into a hole while this happened. After the incident, patient has been having on and off chest pain regardless of activities. He also had lower back pain after the incident. Patient also reported that he has been under tremendous stress with his 16-year-old daughter who recently caught by thermodynamics engineer for shoplifting. He also reported that his blood pressure has been high recently and his PCP added Losartan to his medication while patient also takes Lisinopril. Patient denied any fever, nausea, vomiting , shortness of breath, chills, diarrhea, constipation, headache, loss of consciousness, abdominal pain, upper or lower GI bleed episodes, numbness or other constitutional symptoms. In the emergency room, patient was given pain medication and aspirin with improvement in his symptoms. Initial labs within acceptable range. Initial troponin also negative. Chest x-ray negative for any acute cardiopulmonary process. A lumbar CT also was negative for any acute process. EKG with sinus tachycardia. There was no ST or T-wave changes. A clinical decision was made to admit patient for further evaluation. Hospital Course Patient was subsequently admitted to telemetry floor. Patient was continued on home medications for underlying blood pressure, diabetes, anxiety and dyslipidemia. Losartan was discontinued as patient was already taking lisinopril. EKG remained stable without any ST or T-wave changes. Patient did not have any further chest pain. Serial troponin negative. Echocardiogram with preserved ejection fraction. Patient was evaluated by cardiology. A stress test was recommended. However, patient refused to go for stress test intervention as he started multiple times in the past and the last one was done 2 years ago. Blood pressure medication was carefully reviewed and adjusted per cardiology recommendation. Patient was able to tolerate diet and activities well. Patient is ready for discharge at this time. ACS ruled out. Likely causes of chest pain is most likely musculoskeletal in origin and was resolved with pain medications. Patient also had A1c 12.6. Patient was instructed to repeat A1c in 4 weeks with primary care physician and adjust medication if indicated. Disposition: Patient will be discharged home. Patient was instructed to follow- up with primary care physician in 1 week. Patient was given prescription for new medications. Patient verbalized discharge instructions. On day of discharge, patient condition remained stable. Approximately 60 minutes was spent in coordinating discharge on this patient. Case discussed with Dr. Dickson. Home Meds Active Scripts Aspirin (Aspirin) 81 Mg Chew, 81 MG PO DAILY, #30 TAB Prov:LESTER CRANDALL V. ELEMENTARY SCHOOL TEACHER'S AIDE 12/09/16 Atorvastatin* (Atorvastatin*) 80 Mg Tablet, 80 MG PO QHS, #30 TAB Prov:LESTER CRANDALL V. ELEMENTARY SCHOOL TEACHER'S AIDE 12/09/16 Atenolol* (Atenolol*) 50 Mg Tablet, 50 MG PO BID, #60 TAB Prov:LESTER CRANDALL V. ELEMENTARY SCHOOL TEACHER'S AIDE 12/09/16 Reported Medications Hydrocodone/Acetaminophen ([place] 10-325 Tablet) 1 Each Tablet, 1 EACH PO TID, TAB 12/08/16 Lisinopril* (Lisinopril*) 40 Mg Tablet, 40 MG PO DAILY, #30 TAB 12/08/16 Losartan Potassium* (Cozaar*) 100 Mg Tablet, 100 MG PO DAILY, #30 TAB 12/08/16 Atenolol* (Tenormin*) 50 Mg Tablet, 50 MG PO DAILY, #30 TAB 12/08/16 Alprazolam* (Xanax*) 1 Mg Tab, 1 MG PO QHS Y for SLEEP, TAB 12/08/16 Atorvastatin* (Atorvastatin*) 40 Mg Tablet, 40 MG PO QHS, #30 TAB 12/08/16 Metformin Hcl* (Metformin Hcl*) 1,000 Mg Tablet, 1000 MG PO WITH BREAKFAST DINNE , #30 TAB 12/08/16 Insulin Glargine* (Lantus*) 100 Unit/Ml Soln, 15 UNIT SC QHS, #1 VIAL 12/08/16 Insulin Lispro (Humalog Kwikpen) 200 Unit/1 Ml Insuln.pen, 15 UNIT SQ AC MEALS, EA 12/08/16 Discontinued Scripts Hydrocodone Bit-Acetaminophen* ([place]*) 10-325 Mg Tablet, 1 TAB PO Q6 Y for PAIN , #18 TAB Prov:MADDISON ENCISO MD 12/17/15 Follow-up Plan 1.Follow up with primary care physician in 1 week If you don't have one please let someone know, we can give you resources that may help you pick one. You may also call your insurance company to assign one to you. Review your medication list with your nurse before leaving and if you need new prescriptions please let your nurse know. I may have made changes to your home medications or given you new prescriptions, please let your primary doctor know as well. Stay compliant with your medications and report any side effects to your PCP or pharmacist. Return to the ER if you have any concerns and cannot reach your doctors or call your insurance company, they usually have a nurse that can help you. Primary Care Provider Not On Staff Doctor Pending Labs Laboratory Tests Test 12/08/16 15:00 12/08/16 15:28 12/08/16 18:19 12/08/16 20:40 Creatine Kinase 45IU/L (23-200) 38IU/L (23-200) Creatine Kinase Index 1.7 1.9 Creatinine Kinase MB (Mass) 0.75ng/ml (0.0-2.4) 0.72ng/ml (0.0-2.4) Troponin I < 0.012ng/ml (0.00-0.12) < 0.012ng/ml (0.00-0.12) Urine Color STRAW (YELLOW) Urine Clarity CLEAR (CLEAR) Urine pH 5.0 (5.0-9.0) Urine Specific [place] 1.026 (1.003-1.030) Urine Ketones NEGATIVEmg/dL (NEGATIVE) Urine Nitrite NEGATIVEmg/dL (NEGATIVE) Urine Bilirubin NEGATIVEmg/dL (NEGATIVE) Urine Urobilinogen NEGATIVEmg/dL (NEGATIVE) Urine Leukocyte Esterase NEGATIVELeu/ul (NEGATIVE) Urine Hemoglobin NEGATIVEmg/dL (NEGATIVE) Urine Glucose 3+mg/dL (NEGATIVE) Urine Total Protein NEGATIVEmg/dl (NEGATIVE) Bedside Glucose 201mg/dL (70-220) Test 12/08/16 22:24 12/09/16 05:06 12/09/16 08:07 12/09/16 11:43 Bedside Glucose 149mg/dL (70-220) 208mg/dL (70-220) 248mg/dL (70-220) White Blood Count 8.210^3/ul (4.8-10.8) Red Blood Count 5.1110^6/ul (4.70-6.10) Hemoglobin 14.8g/dl (14.0-18.0) Hematocrit 45.5% (42.0-52.0) Mean Corpuscular Volume 89.0fl (82.0-101.0) Mean Corpuscular Hemoglobin 29.0pg (29.0-33.0) Mean Corpuscular Hemoglobin Concent 32.5g/dl (32.0-37.0) Red Cell Distribution Width 12.3% (11.5-14.5) Platelet Count 20506^3/UL (140-415) Mean Platelet Volume 11.4fl (7.4-10.4) Neutrophils % 45.2% (39.0-77.0) Lymphocytes % 40.0% (15.0-51.0) Monocytes % 9.4% (0.0-11.0) Eosinophils % 4.9% (0.0-7.0) Basophils % 0.1% (0.0-2.0) Nucleated Red Blood Cells % 0.0/100WBC (0.0-0.0) Neutrophils # 3.710^3/ul (1.6-7.5) Lymphocytes # 3.310^3/ul (0.8-2.9) Monocytes # 0.810^3/ul (0.3-0.9) Eosinophils # 0.410^3/ul (0.0-0.5) Basophils # 0.010^3/ul (0.0-0.1) Nucleated Red Blood Cells # 0.010^3/ul (0.0-0.0) Sodium Level 143mmol/L (135-144) Potassium Level 4.4mmol/L (3.5-5.1) Chloride Level 99mmol/L (97-110) Carbon Dioxide Level 28mmol/L (21-31) Anion Gap 20 (8-16) Blood Urea Nitrogen 16mg/dl (7-20) Creatinine 0.83mg/dl (0.61-1.24) Glucose Level 240mg/dl (70-220) Hemoglobin A1c 12.6% (0-5.9) Calcium Level 9.5mg/dl (8.4-10.2) Phosphorus Level 4.5mg/dl (2.5-4.9) Magnesium Level 1.8mg/dl (1.7-2.5) Total Bilirubin 0.3mg/dl (0.2-1.3) Direct Bilirubin 0.00mg/dl (0.00-0.20) Indirect Bilirubin 0.3mg/dl (0-1.1) Aspartate Amino Transf (AST/SGOT) 23IU/L (15-46) Alanine Aminotransferase (ALT/SGPT) 36IU/L (13-69) Alkaline Phosphatase 72IU/L (42-121) Creatine Kinase 38IU/L (23-200) Creatine Kinase Index 1.6 Creatinine Kinase MB (Mass) 0.62ng/ml (0.0-2.4) Troponin I < 0.012ng/ml (0.00-0.12) B-Type Natriuretic Peptide 14PG/ML (0-125) Total Protein 7.0g/dl (6.1-8.1) Albumin 4.0g/dl (3.3-4.9) Globulin 3.00g/dl (1.3-3.2) Albumin/Globulin Ratio 1.33 Triglycerides Level 203mg/dl (0-149) Cholesterol Level 236mg/dl (100-200) LDL Cholesterol, Calculated 161mg/dl HDL Cholesterol 34mg/dl (28-71) Cholesterol/HDL Ratio 6.9RATIO Thyroid Stimulating Hormone (TSH) 1.940MIU/L (0.465-4.680) LESTER CRANDALL NP Dec 09, 2016 12:09
[2016-12-09 12:19] VITALS: PULSE 60
--- NOTE | 2016-12-09 17:36 | RADRPT ---
Vent Rate: 57 bpm RR Interval: 0 msec [place] Interval: 190 msec QRS Duration: 86 msec QT Interval: 454 msec QTC Interval: 441 msec P-R-T [place]: 53 - 65 - 59 degrees Sinus bradycardia Otherwise normal ECG Electronically Signed By: Jas Frias [id number]
[2016-12-09] MEDS ORDERED: ATORVASTATIN 80 MG TAB PO SCH (21:00)
== END 2016-12-09 14:40 | disposition home or self-care (01) ==
LOC: E/R 10:34 → MS3 13:38 → MS4 21:40
PROVIDERS: ADMIT Internal Medicine; ATTEND Internal Medicine
DX: R07.9 Chest pain, unspecified (principal); E11.9 Type 2 diabetes mellitus without complications; I10 Essential (primary) hypertension; F41.9 Anxiety disorder, unspecified; E78.5 Hyperlipidemia, unspecified; G89.29 Other chronic pain; M54.9 Dorsalgia, unspecified; Z79.4 Long term (current) use of insulin; Z87.891 Personal history of nicotine dependence
CPT/HCPCS: 36415; 71010; 72100; 80053; 80061; 81003; 82550; 82553; 82652; 82962; 83036; 83735; 83880; 84100; 84443; 84484; 85025; 85610; 85730; 93005; 93306; 96374; 96375; 96376; J1650; J1815; J2270; J2405; Z7500; Z7502; Z7610; 99217; G0378

== ENCOUNTER 2017-03-12 18:21 | Emergency (ER) | payer OTHER ==
[~2017-03-12] VITALS: Ht 180.3 cm; Wt 104.5 kg
[~2017-03-12 18:21] MED LIST changes: +ALPR1TAB2 PO; +ASPI81TA3 PO; +ATEN50TA PO; +ATOR80TA75 PO; -HYDR-762 PO; +HYDR-902 PO; +INSU200I SQ; +LANT3I SC; +LISI40TA9 PO; +METF1000 PO
[2017-03-12 18:24] VITALS: Ht 180.3 cm; Wt 104.5 kg
[2017-03-12] MEDS ORDERED: ONDANSETRON (ODT) 4 MG TAB ODT STA (19:58)
[2017-03-12] MEDS ORDERED: KETOROLAC 60 MG INJ IM STA (19:58)
[2017-03-12] MEDS ORDERED: morphine 10 MG INJ IM ONE (20:00)
[2017-03-12] MEDS ORDERED: METHOCARBAMOL 750 MG TAB PO ONE (20:00)
--- NOTE | 2017-03-12 21:08 | RADRPT ---
PROCEDURE: CT Brain without contrast. CLINICAL INDICATION: Head trauma TECHNIQUE: A CT of the brain was performed on a multidetector CT scanner utilizing axial sections from the skull base through the vertex without contrast. Images were reviewed on a high-resolution [employer] workstation. Exam CTDI = 43.60 mGy and the DLP = 720.23 mGy-cm. One or more of the following dose reduction techniques were used: Automated exposure control Adjustment of the mA and/or kV according to patient size. Use of iterative reconstruction technique. COMPARISON: None available FINDINGS: There is no evidence of intracranial hemorrhage, mass effect or midline shift. No abnormal intra-ax ial or extra-axial fluid collections are seen. The density of the brain is normal and the valle/whit e matter differentiation is well preserved. The osseous structures are unremarkable. The paranasal sinuses are clear. There is mild intracranial atherosclerosis. IMPRESSION: 1. No intracranial hemorrhage, mass effect or midline shift. 2. Mild intracranial atherosclerosis. RPTAT: HHO .Shoaib Bryant MD, MD Date Time Electronically viewed and signed by .Shoaib Bryant MD, on 03/12/2017 21:08 .O/
--- NOTE | 2017-03-12 21:17 | RADRPT ---
PROCEDURE: CT Cervical Spine. CLINICAL INDICATION: Neck pain status post trauma TECHNIQUE: A CT of the cervical spine was performed on a multi-slice CT scanner utilizing high-res olution axial imaging from the skull base through the cervical thoracic junction. Sagittal, coronal , and multiplanar reformatted images were made. CTD I: 22.3 mGy and DLP: 554.6 mGy-cm One or more of the following dose reduction techniques were used: Automated exposure control. Adjustment of the mA and/or kV according to patient size. Use of iterative reconstruction technique. COMPARISON: None FINDINGS: There is straightening of the cervical lordosis. There is no acute fracture or traumatic malalignme nt. There are postsurgical changes of ACDF at C5-C7. There is solid osseous fusion and C5-C6. There is partial fusion at posterior C6-C7 disc level. The posterior elements are normally aligned. The surrounding soft tissues are normal in appearance. The craniocervical junction is unremarkable. C2-C3: There is mild disc height loss. Small central disc protrusion and small uncovertebral spurrin g are seen. The central canal and bilateral neural foramina are adequately patent. C3-C4: The disc height is maintained. Disc osteophyte complex, small uncovertebral spurring and mod erate to severe left facet arthropathy are seen at this level. There is moderate left and mild to mo derate right neural foraminal stenosis. There is mild central canal stenosis. C4-C5: The disc height is maintained. Disc osteophyte complex, prominent right-sided uncovertebral spurring and mild facet arthropathy are seen at this level. There is moderate to severe right neural foraminal stenosis. The central canal and left neural foramen are adequately patent. C5-C6: Solid osseous fusion. Minimal residual left neural foraminal stenosis. The central canal and right neural foramen are adequately patent. C6-C7: Partial osseous fusion at the disc level. Prominent uncovertebral spurring and mild facet ar thropathy are seen at this level. There is mild to moderate central canal stenosis. There is mild bi lateral neural foraminal stenosis. C7-T1: There is moderate disc height loss with discogenic endplate changes. Disc osteophyte complex, prominent uncovertebral spurring and mild facet arthropathy are seen at this level. There is modera te right and mild left neural foraminal stenosis. The central canal remains adequately patent. IMPRESSION: 1. No acute fracture or traumatic malalignment. 2. Status post prior ACDF at C5 through C7. The hardware is intact. Solid osseous fusion at C5-C6 a nd partial osseous fusion at C6-C7. 3. Moderate to severe right neural foraminal stenosis at C4-C5, and moderate right neural foraminal stenosis at C7-T1. Mild to moderate central canal stenosis at C6-C7. The remainder as above. RPTAT: HHO .Shoaib Bryant MD, Date Time Electronically viewed and signed by .Shoaib Bryant MD, on 03/12/2017 21:16 .O/
[2017-03-12] MEDS ORDERED: NAPR-688 PO (21:55)
[2017-03-12] MEDS ORDERED: HYDR-906 PO (21:55)
[2017-03-12] MEDS ORDERED: METH500T PO (21:55)
[2017-03-12] MEDS ORDERED: HYDROmorphONE 1 MG/ML SYG IM STA (21:55)
[2017-03-12] MEDS ORDERED: ONDA4TAB11 PO (21:56)
[2017-03-12 22:25] VITALS: BP 167/98; PULSE 77; RESP 20; TEMP 98.5
--- NOTE | 2017-03-14 21:49 | ERD ---
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 He has had nausea since then and did not take his BP meds today because of the nausea. ROS All systems reviewed and are negative except as per history of present illness. Medications Home Meds Active Scripts Ondansetron (Zofran Odt) 4 Mg Tab.rapdis, 4 MG PO Q6, #10 Prov:ADELA HOYT DO 03/12/17 Naproxen* (Naproxen*) 500 Mg Tablet, 500 MG PO BID Y for PAIN, #20 TAB Prov:ADELA HOYT DO 03/12/17 Methocarbamol* (Robaxin*) 500 Mg Tab, 500 MG PO Q8, #20 TAB Prov:ADELA HOYT DO 03/12/17 Hydrocodone/Acetaminophen ([place] 5-325 Tablet) 1 Each Tablet, 1 EACH PO Q6, #20 TAB Prov:ADELA HOYT DO 03/12/17 Aspirin (Aspirin) 81 Mg Chew, 81 MG PO DAILY, #30 TAB Prov:LESTER CRANDALL V. DELIVERY RECRUITER 12/09/16 Atorvastatin* (Atorvastatin*) 80 Mg Tablet, 80 MG PO QHS, #30 TAB Prov:LESTER CRANDALL VKamryn DELIVERY RECRUITER 12/09/16 Atenolol* (Atenolol*) 50 Mg Tablet, 50 MG PO BID, #60 TAB Prov:LESTER CRANDALL V. DELIVERY RECRUITER 12/09/16 Reported Medications Hydrocodone/Acetaminophen ([place] 10-325 Tablet) 1 Each Tablet, 1 EACH PO TID, TAB 12/08/16 Lisinopril* (Lisinopril*) 40 Mg Tablet, 40 MG PO DAILY, #30 TAB 12/08/16 Alprazolam* (Xanax*) 1 Mg Tab, 1 MG PO QHS Y for SLEEP, TAB 12/08/16 Metformin Hcl* (Metformin Hcl*) 1,000 Mg Tablet, 1000 MG PO WITH BREAKFAST DINNE , #30 TAB 12/08/16 Insulin Glargine* (Lantus*) 100 Unit/Ml Soln, 15 UNIT SC QHS, #1 VIAL 12/08/16 Insulin Lispro (Humalog Kwikpen) 200 Unit/1 Ml Insuln.pen, 15 UNIT SQ AC MEALS, EA 12/08/16 Allergies Allergies: Coded Allergies: No Known Allergy (Unverified , 12/08/16) PMhx/Soc History of Surgery: Yes (back x4, neck with titanium plate, knee replacement, wrist and ankle ) Anesthesia Reaction: No Hx Neurological Disorder: No Hx Respiratory Disorders: No Hx Cardiac Disorders: Yes (htn, hld) Hx Psychiatric Problems: No Hx Miscellaneous Medical Probl: Yes (dm) Hx Alcohol Use: Yes Hx Substance Use: No Hx Tobacco Use: No Smoking Status: Never smoker Physical Exam Vitals Vital Signs Date Time Temp Pulse Resp B/P Pulse Ox O2 Delivery O2 Flow Rate FiO2 03/12/17 22:25 98.5 77 20 167/98 100 Room Air 03/12/17 21:57 82 19 174/106 97 Room Air 03/12/17 18:24 98.0 88 18 212/110 98 Physical Exam Const: [] Mild distress Head: Atraumatic Eyes: Normal Conjunctiva, EOMI, PERRLA ENT: Normal External Ears, Nose and Mouth. Neck: Bliateral paraspinal muscle spasm with bilateral upper trap muscle spasm. Mild midcervical mildline tenderness. Resp: Clear to auscultation bilaterally Cardio: Regular rate and rhythm, no murmurs Skin: No petechiae or rashes Back: No midline or flank tenderness Ext: No cyanosis, or edema Neur: Awake and alert and O x 3, CN 2-12 intact, no cerebellar def, normal gait. Psych: Normal Mood and Affect Results 24 hrs Current Medications Medications (Trade) Dose Ordered Sig/Travon Route PRN Reason Start Time Stop Time Status Last Admin Dose Admin Morphine Sulfate (morphine) 6 mg ONCE ONCE IM 03/12/17 20:00 03/12/17 20:02 DC 03/12/17 20:28 Ketorolac Tromethamine (Toradol) 60 mg ONCE STAT IM 03/12/17 19:58 03/12/17 20:02 DC 03/12/17 20:27 Ondansetron HCl (Zofran Odt) 4 mg ONCE STAT ODT 03/12/17 19:58 03/12/17 20:02 DC 03/12/17 20:26 Methocarbamol (Robaxin) 750 mg ONCE ONCE PO 03/12/17 20:00 03/12/17 20:02 DC 03/12/17 20:26 Hydromorphone HCl (Dilaudid) 1 mg ONCE STAT IM 03/12/17 21:55 03/12/17 22:01 DC 03/12/17 22:04 Procedures/MDM Head injury and neck strain. Uncontrolled HTN 2/2 nausea caused by missed doses of BP meds and pain. He was given morphine for pain with helped somewhat. When CT returned with ho intracranial hemorrhage toradol and diuadid were given IM which relieved his pain. Blood pressure decreased with pain control. Zofran IM resolved nausea and he is able to take p.o. Will take BP meds at home. Prior neck surgery with significant stenosis. He was given a copy of his CT report to F/U with his spinal surgeon. VSS. PCP followup and head injury return precautions. Head CT interp: I see no acute process. No hemorrhage, no mass effect, no midline shit or fractures. CT C spine: multilevel spinal stenosis with no acute fracture, subluxation or dislocation. Departure Diagnosis: Primary Impression: Uncontrolled hypertension Additional Impressions: Head injury Cervical strain, acute Condition: Stable Patient Instructions: HEAD INJURY, No Wake-Up (Adult), Hypertension, Established, Out Of Control, Neck Sprain/Strain Additional Instructions: Call your primary care doctor TOMORROW for a SAME-DAY APPOINTMENT.Tell the alumni secretary that you were referred from this facility.Call again if your condition worsens before your appointment time. ADELA HOYT DO Mar 14, 2017 21:49
== END 2017-03-12 22:32 | disposition home or self-care (01) ==
LOC: FTE 18:21
DX: I10 Essential (primary) hypertension (principal); S09.90XA Unspecified injury of head, initial encounter; S13.4XXA Sprain of ligaments of cervical spine, initial encounter; E11.9 Type 2 diabetes mellitus without complications; W20.8XXA Other cause of strike by thrown, projected or falling object, initial encounter; Y92.89 Other specified places as the place of occurrence of the external cause; Z79.82 Long term (current) use of aspirin; Z79.4 Long term (current) use of insulin; Z79.84 Long term (current) use of oral hypoglycemic drugs
CPT/HCPCS: 70450; 72125; 96372; J1170; J1885; J2270; Z7502; Z7610

== ENCOUNTER 2017-08-29 13:08 | Emergency (ER) | END 2017-08-29 20:53 | disposition home or self-care (01) ==

== ENCOUNTER 2017-12-15 14:42 | Emergency (ER) | END 2017-12-15 17:46 | disposition home or self-care (01) ==